=== PATIENT | female | born 1970 | race Two or more races ===

== ENCOUNTER → 2025-01-09 | Outpatient (CLI) | payer MEDICAID, SELFPAY ==
--- NOTE | 2025-01-09 09:54 | XR_ITS ---
Examination: Hand, right 3 views Technique: Hand AP, oblique, lateral 3 views Date and time of exam: January 09, 2025 1051 hours INDICATIONS: Right hand pain beginning 2 months ago. FINDINGS: Moderate osteopenia. Moderate osteoarthritis distal interphalangeal joints second through fifth digits and interphalangeal joints first digit No erosive arthritis No fractures IMPRESSION: Osteoarthritis as above
--- NOTE | 2025-01-09 09:54 | XR_ITS ---
Examination: Cervical spine 3 views Technique one AP lateral coned AP odontoid cervical spine 3 views Date and time: January 09, 2025 1057 hours INDICATIONS: Neck pain beginning 2 months ago FINDINGS: Adequate alignment cervical vertebral bodies. No cervical fracture. Intact odontoid. Moderate disc narrowing C5-C6 IMPRESSION: Moderate degenerative disc disease C5-C6
== END | disposition home or self-care (01) ==
LOC: CDIM 09:26
PROVIDERS: PCP Nurse Practitioner; Referring Provider Nurse Practitioner; Visit Provider Nurse Practitioner
DX: M19.041 Primary osteoarthritis, right hand (principal); M50.322 Other cervical disc degeneration at C5-C6 level
CPT/HCPCS: 72040; 73130